=== PATIENT | female | born 1985 | race African-American/Black ===

== ENCOUNTER 2019-12-29 10:28 | Emergency (ER) | payer MEDICAID ==
[~2019-12-29] VITALS: Ht 167.6 cm; Wt 75.9 kg
[2019-12-29] MEDS ORDERED: KETOROLAC TROMETHAMINE 60 MG/2 ML VIAL IM ONE (12:15)
[2019-12-29] MEDS ORDERED: IBUPROFEN 800 MG TABLET PO ONE (13:15)
[2019-12-29 13:45] VITALS: BP 129/88
== END 2019-12-29 14:04 | disposition home or self-care (01) ==
LOC: EMS 10:32
DX: R07.89 Other chest pain (principal); F17.210 Nicotine dependence, cigarettes, uncomplicated; V49.9XXA Car occupant (driver) (passenger) injured in unspecified traffic accident, initial encounter; W22.19XA Striking against or struck by other automobile airbag, initial encounter; Y93.89 Activity, other specified; Y92.488 Other paved roadways as the place of occurrence of the external cause; Y99.8 Other external cause status
CPT/HCPCS: 99406; J1885